=== PATIENT | female | born 1980 | race Caucasian/White ===

== ENCOUNTER 2022-09-27 11:21 | Emergency (ER) | payer BC, MEDICAID, SELFPAY ==
--- NOTE | ~2022-09-27 | US_ITS ---
EXAMINATION: US VENOUS ULTRASOUND WITH DOPPLER LOWER EXTREMITY, RIGHT CLINICAL INFORMATION: Right thigh pain COMPARISON: None TECHNIQUE: Ultrasound of the deep veins is performed from the hip to the calf with compression sonography and color and pulse Doppler assessment. Spectral analysis with color-flow imaging is performed. FINDINGS: There is normal venous compression and respiratory variation and augmented flow. The visualized common femoral vein, superficial femoral vein, profunda femoral vein, popliteal vein, and the trifurcation region shows no evidence of deep venous thrombosis. A 2.1 x 1.6 x 2.1 cm Medina's cyst is present. If the patient's symptoms persist, followup ultrasound in 5 days 7 days might be of value to exclude proximal propagation from a non-visualized calf vein. US/US venous duplex LE RT IMPRESSION: No DVT demonstrated in the right lower extremity.
[2022-09-27 11:27] VITALS: BP 164/83; PULSE 83; RESP 20; TEMP 36.6; O2SAT 97; BMI 44.6
--- NOTE | 2022-09-27 11:27 | ED_ITS ---
HPI - General Adult General Chief complaint: Extremity Problem <Georgina Aden NP - Last Filed: 09/27/22 11:29> Stated complaint: R leg pain/swelling rad to buttock <Georgina Aden NP - Last Filed: 09/27/22 11:29> Time Seen by Provider: 09/27/22 11:41 <Georgina Aden NP - Last Filed: 09/27/22 11:29> Source: patient <MASTER Power - Last Filed: 09/27/22 13:05> Mode of arrival: ambulatory <MASTER Power Last Filed: 09/27/22 13:05> Limitations: no limitations <MASTER Power Last Filed: 09/27/22 13:05> History of Present Illness HPI narrative: 42yoF presenting to the ED c c/o of atraumatic right posterior thigh/knee pain x 1 week. Worse with movement. She denies any falls, chest pain, shortness of breath, dyspnea on exertion, orthopnea, leg swelling, calf tenderness, recent travel and a long plane train or car ride, history of hypercoagulation disorder history of clotting disorder, history of recent surgery or cancer, recent immobilization or any other symptoms complaints or concerns at this time. <MASTER Power - Last Filed: 09/27/22 13:05> MD complaint: right poterior leg pain <MASTER Power - Last Filed: 09/27/22 13:05> Onset (ago): week(s) (1) <MASTER Power - Last Filed: 09/27/22 13:05> Related Data Home medications: Previous Rx's Medication Instructions Recorded cyclobenzaprine 10 mg tablet 10 mg PO Q8H #14 tabs 09/27/22 naproxen 500 mg tablet 500 mg PO BID PRN pain #14 tabs 09/27/22 <Georgina Aden NP - Last Filed: 09/27/22 11:29> Allergies/adverse reactions: Allergies Allergy/AdvReac Type Severity Reaction Status Date / Time No Known Allergies Allergy Verified 09/27/22 11:38 <Georgina Aden NP - Last Filed: 09/27/22 11:29> Review of Systems Review of Systems: Constitutional : No Weight loss, No Fever, No Chills, No Night Sweats, No Fatigue, No Malaise ENT/Mouth : No Hearing loss, No Ear Pain, No Nasal Congestion, No Sinus Pain, No Hoarseness, No sore throat, No Rhinorrhea, No Swallowing Difficulty Eyes: No Eye Pain, No Swelling, No Redness, No Foreign Body, No Discharge, No Vision Changes Cardiovascular : No Chest Pain, No SOB, No Dyspnea on Exertion, No Orthopnea, No Edema, No Palpitations Respiratory : No Cough, No Sputum, No Wheezing, No Smoke Exposure, No Dyspnea Gastrointestinal : No Nausea, No Vomiting, No Diarrhea, No Constipation, No abdominal Pain, No Hematochezia, No Melena Genitourinary : no irregular bleeding, No Dysuria, No Urinary Frequency, No Hematuria, No Urinary Incontinence, No Urgency, No Flank Pain, No Urinary Flow Changes, No Hesitancy Musculoskeletal :+ right posterior thigh/knee pain, No Myalgias, No Joint Swelling Skin : No Skin Lesions, No rash Neuro : No Weakness, No Numbness, No Paresthesias, No Loss of Consciousness, No Dizziness, No Headache Psych : No Anxiety/Panic, No Depression, No SI/HI/AH/VH, No Social Issues, Heme/Lymph: No Bruising, No Bleeding,No Lymphadenopathy Endocrine : No Polyuria, No Polydipsia, No Temperature Intolerance <MASTER Power - Last Filed: 09/27/22 13:05> Yes all other systems are reviewed and are negative <MASTER Power - Last Filed: 09/27/22 13:05> [facility] Past Medical History Attestation statement: The following information was validated with the patient. <MASTER Power - Last Filed: 09/27/22 13:05> Source: old records reviewed, obtained from family and nursing notes reviewed <MASTER Power - Last Filed: 09/27/22 13:05> Social History Social History: Social History Alcohol intake: never Smoked in Last 30 Days: No Use of substances other than those prescribed or required for medical reasons: Yes Substance Use Type: Marijuana Substance Use Frequency: Daily Advance Directives: No Advance Directives Information Provided: No <Georgina Pascucci, CIRCULAR GANG SAW OPERATOR - Last Filed: 09/27/22 11:29> Physical Exam ED Vital Signs: Vital Signs - 24 hr 09/27/22 11:27 Temperature 97.8 F Pulse Rate 83 Respiratory Rate 20 Blood Pressure 164/83 H Pulse Oximetry 97 Oxygen Delivery Method Room Air BMI result Body Mass Index 44.6 <Georgina Aden NP - Last Filed: 09/27/22 11:29> Vital Signs - 24 hr 09/27/22 11:27 Temperature 97.8 F Pulse Rate 83 Respiratory Rate 20 Blood Pressure 164/83 H Pulse Oximetry 97 Oxygen Delivery Method Room Air BMI result Body Mass Index 44.6 vital signs have been reviewed as normal and appeared to be correct. Blood pressure normal. Heart rate normal. Respiration rate normal. Temperature normal. Oxygen saturation normal. <MASTER Power - Last Filed: 09/27/22 13:05> Appearance: Alert. Oriented X3. No acute distress. Head: Normal external exam. Normocephalic. Atraumatic. Eyes: PERRLA. EOMI. Conjunctiva and sclera normal. Eyelids normal. ENT: Pharynx normal. Uvula midline. Moist mucous membranes. No lesions/ulcerations or masses noted on the tongue. Normal voice. No trismus noted. No drooling noted. No muffled voice noted. Neck: Normal inspection. Neck supple. FROM. No adenopathy. No meningeal signs. CVS: Normal heart rate and rhythm. Heart sound normal. Pulses normal throughout. No murmurs/rales/gallops. Respiratory: No respiratory distress. Painless inspiration. Breath sounds normal. No wheezes/rales/rhonchi noted. Chest nontender. No crepitus is noted. No signs of trauma noted. No accessory muscle usage noted or decreased air movement noted. No signs of trauma. Back: Full range of motion noted. Nontender. Skin: Skin warm and dry. Normal skin color. Normal skin turgor. No rashes/lesions/lacerations noted. Extremities: ptc ttp to right poterior/lateral thigh area and posterior knee. She has full range of motion of the right hip/knee joint. No obvious ligamentous or tendon injury noted. Not consistent muscle rupture. No rashes or signs of infection noted. There is no lower extremity edema or calf tenderness noted. Otherwise all other extremities exhibit normal range of motion nontender. Neuro: Oriented X 3. No motor deficit. No sensory deficit. Reflexes normal. Normal steady gait. No focal neuro deficits noted. CN's II-XII intact bilaterally? Vascular: + radial pulses/+ 2 distal pedal pulses/+2 dorsalis pedis b/l. Normal cap refill. No cyanosis noted to upper extremity nails and lower extremity toes nails. <MASTER Pwoer - Last Filed: 09/27/22 13:05> Course Course Course Narrative: This is rapid medical exam. Deferred additional HPI, ROS, PE to primary provider. 42 yo female with history of seizure disorder, HTN here with posterior right knee pain with radiation to the right buttocks with no known injury or trauma x 1 week. Called PCP and sent in for further evaluation w/ concern for ?blood clot. Unable to visualize in triage. VS-w/ exception of mild hypertension in triage <Georgina Aden NP - Last Filed: 09/27/22 11:29> Reevaluation(s) Reevaluation #1: 42yoF presenting to the ED c c/o of atraumatic right posterior thigh/knee pain x 1 week. Worse with movement. Not c/w necrotizing fasciitis/ myositis/ arterial occlusion/ osteomyelitis/ compartment syndrome/ septic joint. Therefore ultrasound obtained and negative for DVT or any other acute processes. Patient most likely muscular skeletal strain. Will DC home with symptomatic treatment instructions return if any new or worsening symptoms to follow up with primary care provider. Patient understands agrees with this plan. <MASTER Power - Last Filed: 09/27/22 13:05> Medications Administered Discontinued Medications Generic Name Dose Route Start Last Admin Trade Name Freq PRN Reason Stop Dose Admin Cyclobenzaprine HCl 10 mg 09/27/22 11:54 09/27/22 12:06 Cyclobenzaprine Hcl 10 Mg Tablet PO 09/27/22 11:55 10 mg ONCE ONE Administration Ibuprofen 800 mg 09/27/22 11:54 09/27/22 12:07 Ibuprofen 800 Mg Tablet PO 09/27/22 11:55 800 mg ONCE ONE Administration <Georgina Aden NP - Last Filed: 09/27/22 11:29> Medications Administered Discontinued Medications Generic Name Dose Route Start Last Admin Trade Name Freq PRN Reason Stop Dose Admin Cyclobenzaprine HCl 10 mg 09/27/22 11:54 09/27/22 12:06 Cyclobenzaprine Hcl 10 Mg Tablet PO 09/27/22 11:55 10 mg ONCE ONE Administration Ibuprofen 800 mg 09/27/22 11:54 09/27/22 12:07 Ibuprofen 800 Mg Tablet PO 09/27/22 11:55 800 mg ONCE ONE Administration <MASTER Power - Last Filed: 09/27/22 13:05> Medical Decision Making Independent Interpretation I performed an independent interpretation of an: Ultrasound <MASTER Power Last Filed: 09/27/22 13:05> Interpretation: FINDINGS: There is normal venous compression and respiratory variation and augmented flow. The visualized common femoral vein, superficial femoral vein, profunda femoral vein, popliteal vein, and the trifurcation region shows no evidence of deep venous thrombosis. ? A 2.1 x 1.6 x 2.1 cm Medina's cyst is present. If the patient's symptoms persist, followup ultrasound in 5 days 7 days might be of value to exclude proximal propagation from a non-visualized calf vein. US/US venous duplex LE RT IMPRESSION: No DVT demonstrated in the right lower extremity. <MASTER Power - Last Filed: 09/27/22 13:05> Radiology Impression Discussion of test interpretation with radiology: I have reviewed the radiologist's reading. <MASTER Power - Last Filed: 09/27/22 13:05> Discharge Plan Discharge Clinical Impression: Muscle spasm of right leg <Georgina Aden NP - Last Filed: 09/27/22 11:29> Patient Disposition: Home, Self-Care <Georgina Aden NP - Last Filed: 09/27/22 11:29> Instructions: Muscle Spasm (ED) <Georgina dAen NP - Last Filed: 09/27/22 11:29> Prescriptions: New naproxen 500 mg tablet 500 mg PO BID PRN (Reason: pain) Qty: 14 0RF cyclobenzaprine 10 mg tablet 10 mg PO Q8H Qty: 14 0RF <Georgina Aden NP - Last Filed: 09/27/22 11:29> Referrals: Cayden Murrieta MD [Primary Care Provider] - 2 days <Georgina Aden NP - Last Filed: 09/27/22 11:29> Stand Alone Forms: Work/School Release <Georgina Aden NP - Last Filed: 09/27/22 11:29>
--- NOTE | 2022-09-27 11:49 | PC.NURSE ---
pt Aox3. right foot warm and pink. pedal and post tib pulses not palpable, located with doppler and marked.
[2022-09-27] MEDS: Cyclobenzaprine HCl 10 MG TABLET PO (12:06)
[2022-09-27] MEDS: Ibuprofen 800 MG TABLET PO (12:07)
--- OUTSIDE RECORDS SUMMARY | 2022-09-27 12:07 | XMS_ITS | Continuity of Care Document ---
:1980 Author Organization [facility] [place] [address] [facility], [facility] [address] [place] [address]- Care Team Providers Name Role Phone Cayden Murrieta MD Primary Care Physician Encounter 03/11/20 - 03/18/20 [facility] [address], [address] [address]- [facility] Attending Physician: Cricket Ray MD Admitting Physician: Cricket Ray MD Referring Physician: Cricket Ray MD Allergies, Adverse Reactions, Alerts Substance Reaction Severity Status NKA Active Immunizations Given and Recorded Vaccine Date Status Refusal Reason influenza virus vaccine, inactivated 06/28/15 Given Tet/Diphth/Acel, Pertussis (oldterm) 11/16/09 Given Medications Depakote ER 500, mg, By Mouth, 2 times a day, 0, 0, 10/29/07 16:47:00, Print TERESO Number, [id number], Constant Indicator Start Date: 10/29/07 Status: OrderedDepo-Provera Contraceptive 150, mg, Intramuscular, Once, 0, 0, 10/29/07 16:47:29, Print TERESO Number, 42, Constant Indicator Start Date: 10/29/07 Status: Ordereddiclofenac sodium 50 mg oral delayed release tablet 1 tablet = 50 mg, By Mouth, 3 times a day, # 90 tablet, 0 Refills, Maintenance, 09/06/16 13:02:40, EC Tablet Start Date: 09/06/16 Status: OrderedDiflucan 150 mg oral tablet 1 tablet = 150 mg, By Mouth, Once, # 1 tablet, 0 Refills, Soft Stop, 11/21/18 13:21:52 EDT, Tablet Start Date: 11/21/18 Status: OrderedZithromax Z-Ralph 250 mg oral tablet 1 pack/packet, By Mouth, Once, # 6 tablet, 0 Refills, Maintenance, Tablet Start Date: 06/16/11 Stop Date: 06/21/11 Status: Ordered Problem List Condition Effective Dates Status Health Status Informant Epilepsy(Confirmed) 01/07/96 Active
--- OUTSIDE RECORDS SUMMARY | 2022-09-27 12:07 | XMS_ITS | Continuity of Care Document ---
:1980 Author Organization [address], [address] [place] [address]- Care Team Providers Name Role Phone Cayden Murrieta MD Primary Care Physician Encounter [facility] Date(s): 08/09/20 - 09/08/[address], [address] [place], [place] [address] Attending Physician: Kimber Jacques Admitting Physician: AdmtrKimber Referring Physician: Admtr, Kimber Allergies, Adverse Reactions, Alerts Substance Reaction Severity Status NKA Active Immunizations Given and Recorded Vaccine Date Status Refusal Reason influenza virus vaccine, inactivated 06/28/15 Given Tet/Diphth/Acel, Pertussis (oldterm) 11/16/09 Given Medications Depakote ER 500, mg, By Mouth, 2 times a day, 0, 0, 10/29/07 16:47:00, Print TERESO Number, [id number], Constant Indicator Start Date: 10/29/07 Status: Orderedgabapentin 100 mg oral capsule 100 mg, 1, capsule, By Mouth, 3 times a day, # 42 capsule, Refills 0, Tot. Refills 0, Maintenance, 06/03/20 13:00:00 EDT, Print Requisition Start Date: 06/03/20 Stop Date: 06/17/20 Status: Orderedhydrochlorothiazide 50 mg oral tablet 50 mg, 1, tablet, By Mouth, Daily, # 30 tablet, Refills 0, Maintenance, 06/16/20 10:53:00 EDT Start Date: 06/16/20 Status: OrderedMirena 52 mg intrauterine device 1 each = 52 mg, Once, 0 Refills, Maintenance, 06/16/20 10:53:00 EDT Start Date: 06/16/20 Status: Orderedsertraline 100 mg oral tablet 1 tablet = 100 mg, By Mouth, Daily, # 30 tablet, 0 Refills, Maintenance, 06/16/20 10:53:00 EDT, Tablet Start Date: 06/16/20 Status: OrderedtiZANidine 4 mg oral tablet 4 mg, 1, tablet, By Mouth, Every 8 hours, PRN, # 42 tablet, Refills 0, Tot. Refills 0, Maintenance, Spasm, 08/09/20 14:34:00 EST, Route to Pharmacy Electronically, [facility] #[id number], Partial fill upon patient request if the prescription is f... Start Date: 08/09/20 Stop Date: 08/23/20 Status: Ordered Problem List Condition Effective Dates Status Health Status Informant Epilepsy(Confirmed) 01/07/96 Active
--- OUTSIDE RECORDS SUMMARY | 2022-09-27 12:07 | XMS_ITS | Continuity of Care Document ---
:1980 Author Organization [facility] Address [address] [place] [address]- Care Team Providers Name Role Phone Glenny SPRINGER, Cayden Chambers Primary Care Physician Encounter [facility] [place] Date(s): 12/23/19 - 01/23/[address] [address]- [facility] Attending Physician: Minda KESSLER, Patience Hines Allergies, Adverse Reactions, Alerts Substance Reaction Severity Status NKA Active Immunizations Given and Recorded Vaccine Date Status Refusal Reason influenza virus vaccine, inactivated 06/28/15 Given Tet/Diphth/Acel, Pertussis (oldterm) 11/16/09 Given Medications Depakote ER 500, mg, By Mouth, 2 times a day, 0, 0, 10/29/07 16:47:00, Print TERESO Number, [id number], Constant Indicator Start Date: 10/29/07 Status: OrderedDepo-Provera [...]
--- OUTSIDE RECORDS SUMMARY | 2022-09-27 12:07 | XMS_ITS | Continuity of Care Document ---
:1980 Author Organization [facility] Address [address] [place] [address]- Care Team Providers Name Role Phone Cayden Murrieta MD Primary Care Physician Encounter [facility] [place] Date(s): 11/13/19 - 02/20/[address] [address]- [facility] Attending Physician: Cricket Ray MD Admitting Physician: Cricket Ray MD Referring Physician: Cricket Ray MD Allergies, Adverse Reactions, Alerts Substance Reaction Severity Status NKA Active Immunizations Given and Recorded Vaccine Date Status Refusal Reason influenza virus vaccine, inactivated 06/28/15 Given Tet/Diphth/Acel, Pertussis (oldterm) 11/16/09 Given Medications Depakote ER 500, mg, By Mouth, 2 times a day, 0, 0, 10/29/07 16:47:00, Print TERESO Number, [id number], Constant Indicator Start Date: 10/29/07 Status: OrderedDepo-Provera [...]
--- OUTSIDE RECORDS SUMMARY | 2022-09-27 12:07 | XMS_ITS | Continuity of Care Document ---
:1980 Author Organization [facility] Address [address] [place] [address]- Care Team Providers Name Role Phone Glenny SPRINGER, Cayden Chambers Primary Care Physician En[place] [facility] [place] Date(s): 12/23/19 - 12/24/[address] [address]- [facility] Attending Physician: Minda KESSLER, Patience Hines Allergies, Adverse Reactions, Alerts Substance Reaction Severity Status NKA Active Immunizations Given and Recorded Vaccine Date Status Refusal Reason influenza virus vaccine, inactivated 06/28/15 Given Tet/Diphth/Acel, Pertussis (oldterm) 11/16/09 Given Medications Depakote ER 500, mg, By Mouth, 2 times a day, 0, 0, 10/29/07 16:47:00, Print TERESO Number, [id number], Constant Indicator Start Date: 10/29/07 Status: OrderedDepo-Provera [...]
--- OUTSIDE RECORDS SUMMARY | 2022-09-27 12:07 | XMS_ITS | Continuity of Care Document ---
:1980 Author Organization [facility] Address [address] [place] [address], [address] [place] [address]- Care Team Providers Name Role Phone Glenny SPRINGER, Cayden Chambers Primary Care Physician [place] [facility] [place] 07/30/20 - 08/29/[address], [address] [place], [place] [address] Allergies, Adverse Reactions, Alerts Substance Reaction Severity Status NKA Active Immunizations Given and Recorded Vaccine Date Status Refusal Reason influenza virus vaccine, inactivated 06/28/15 Given Tet/Diphth/Acel, Pertussis (oldterm) 11/16/09 Given Medications Depakote ER 500, mg, By Mouth, 2 times a day, 0, 0, 10/29/07 16:47:00, Print TERESO Number, [id number], Constant Indicator Start Date: 10/29/07 Status: Orderedgabapentin [...] 08/09/20 14:34:00 EST, Route to Pharmacy Electronically, [facility] #[id number], Partial fill upon patient request if the prescription is f... Start Date: 08/09/20 Stop Date: 08/23/20 Status: Ordered Problem List Condition Effective Dates Status Health Status Informant Epilepsy(Confirmed) 01/07/96 Active
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
--- OUTSIDE RECORDS SUMMARY | 2022-09-27 12:07 | XMS_ITS | Continuity of Care Document ---
:1980 Author Organization [address], [address] [place] [address]- Care Team Providers Name Role Phone Glenny SPRINGER, Cayden Chambers Primary Care Physician Encounter [facility] [place] Date(s): 08/09/20 - 08/16/[address], [address] [place], [place] [address] Attending Physician: Fili Bonner MD Allergies, Adverse Reactions, Alerts Substance Reaction Severity Status NKA Active Immunizations Given and Recorded Vaccine Date Status Refusal Reason influenza virus vaccine, inactivated 06/28/15 Given Tet/Diphth/Acel, Pertussis (oldterm) 11/16/09 Given Medications Depakote ER 500, mg, By Mouth, 2 times a day, 0, 0, 10/29/07 16:47:00, Print TERESO Number, [id number], Constant Indicator Start Date: 10/29/07 Status: Orderedgabapentin [...] 08/09/20 14:34:00 EST, Route to Pharmacy Electronically, [id number], Partial fill upon patient request if the prescription is f... Start Date: 08/09/20 Stop Date: 08/23/20 Status: Ordered Problem List Condition Effective Dates Status Health Status Informant Epilepsy(Confirmed) 01/07/96 Active Vital Signs Most recent to oldest [Reference Range]: 1 Height 165 cm (08/09/20 1:48 PM) Weight 106.6 kg (08/09/20 1:48 PM) Body Mass Index [18.5-24.99] 39.16 *>HHI* (08/09/20 1:48 PM)
--- OUTSIDE RECORDS SUMMARY | 2022-09-27 12:07 | XMS_ITS | Continuity of Care Document ---
:1980 Author Organization [facility] Address [address] [place] [id number]- Care Team Providers Name Role Phone Cayden Murrieta MD Primary Care Physician Encounter [facility] [place] [facility] [place] Date(s): 10/22/19 - 12/24/[address] [address]- [facility] Attending Physician: Cricket Ray MD Admitting Physician: Cricket Ray MD Referring Physician: Cricket Ray MD Allergies, Adverse Reactions, Alerts Substance Reaction Severity Status NKA Active Immunizations Given and Recorded Vaccine Date Status Refusal Reason influenza virus vaccine, inactivated 06/28/15 Given Tet/Diphth/Acel, Pertussis (oldterm) 11/16/09 Given Medications Depakote ER 500, mg, By Mouth, 2 times a day, 0, 0, 10/29/07 16:47:00, Print TERESO Number, [id number], Constant Indicator Start Date: 10/29/07 Status: OrderedDepo-Provera [...]
--- OUTSIDE RECORDS SUMMARY | 2022-09-27 12:07 | XMS_ITS | Continuity of Care Document ---
:1980 Author Organization [facility] Address [address] [place] [address]- Care Team Providers Name Role Phone Cayden Murrieta MD Primary Care Physician Encounter [facility] [place] [place] Date(s): 11/13/20 - 11/13/[address] [address]- Encounter Diagnosis Seizure (Final) - 11/13/20 Discharge Disposition: A-D/C Home Attending Physician: Nicola Valdes MD Admitting Physician: Nicola Valdes MD Referring Physician: Not on Staff, Referring MD Allergies, Adverse Reactions, Alerts Substance Reaction Severity Status NKA Active Immunizations Given and Recorded Vaccine Date Status Refusal Reason influenza virus vaccine, inactivated 06/28/15 Given Tet/Diphth/Acel, Pertussis (oldterm) 11/16/09 Given Medications Depakote ER 500, mg, By Mouth, 2 times a day, 0, 0, 10/29/07 16:47:00, Print TERESO Number, [id number], Constant Indicator Start Date: 10/29/07 Status: Orderedgabapentin [...] 08/09/20 14:34:00 EST, Route to Pharmacy Electronically, [facility] #[id number], Partial fill upon patient request if the prescription is f... Start Date: 08/09/20 Stop Date: 08/23/20 Status: Ordered Problem List Condition Effective Dates Status Health Status Informant Epilepsy(Confirmed) 01/07/96 Active Vital Signs Most recent to oldest [Reference Range]: 1 2 Oxygen Saturation [94-100 %] 96 % 95 % (11/13/20 7:46 PM) (11/13/20 4:30 PM) Pulse Rate [55-90 bpm] 89 bpm 94 bpm (11/13/20 7:46 PM) *H* (11/13/20 4:30 PM) Blood Pressure [90-138/55-84 mm Hg] 117/70 mm Hg 113/ 79 mm Hg (11/13/20 7:46 PM) (11/13/20 4:30 PM) Respiratory Rate [16-30 br/min] 18 br/min 18 br/mi n (11/13/20 7:46 PM) (11/13/20 4:30 PM) Temperature [96.8-100.4 DegF] 97.9 DegF (11/13/20 4:30 PM) Mode of Delivery (Oxygen) Room air Room air (11/13/20 7:46 PM) (11/13/20 4:30 PM) Blood pressure sites Arm, right (11/13/20 7:46 PM) Temperature Route Oral (11/13/20 4:30 PM)
--- NOTE | 2022-09-27 12:08 | PC.NURSE ---
pt medicated per order. imaging with pt for ultrasound.
== END 2022-09-27 13:02 | disposition home or self-care (01) ==
PROVIDERS: Emergency Provider Student in an Organized Health Care Education/Training Program; PCP Internal Medicine
DX: M62.831 Muscle spasm of calf (principal); R60.0 Localized edema
CPT/HCPCS: 93971; 99284